=== PATIENT | female | born 1940 | race Caucasian/White ===

== ENCOUNTER 2021-09-08 18:20 | Emergency (ER) | payer MEDICARE ==
[2021-09-08] MEDS ORDERED: NAPROXEN250 MG PO (22:11)
== END 2021-09-08 22:30 | disposition home or self-care (01) ==
LOC: FER 18:20
DX: M25.561 Pain in right knee (principal); G89.29 Other chronic pain; E11.9 Type 2 diabetes mellitus without complications; Z88.0 Allergy status to penicillin; Z88.1 Allergy status to other antibiotic agents
CPT/HCPCS: 73560; 96372; J1885